=== PATIENT | male | born 1990 | race Caucasian/White ===

== ENCOUNTER 2024-05-28 08:11 | Day surgery (SDC) | payer OTHER, SELFPAY ==
[2024-05-28] VITALS (10 sets, daily range): BP systolic 112–133; BP diastolic 79–99; PULSE 62–80; TEMP 36.1–36.8; O2SAT 97–100; BMI 24.6
[2024-05-28] MEDS: LACTATED RINGER'S SOLUTION 1,000 ML 50 ML IV (09:07)
[2024-05-28] MEDS: CEFAZOLIN SODIUM 2 GM/50 ML D5W PREMIX IV (09:10)
--- NOTE | 2024-05-28 10:25 | P.URON_ITS ---
Urology Surgery Operative Note Operative Note Procedure Date: 05/28/24 Time Out Performed: yes Pre-op Diagnosis: Left ureteral and left renal calculi Post-op Diagnosis: same as pre-op Procedures performed: 1. Cystoscopy. 2. Left ureteroscopy. 3. Thulium laser lithotripsy of left ureteral calculus. 4. Stone fragment basket extraction. 5. The left pyeloscopy. 6. Placement of 4.8 [place] left ureteral stent Anesthesia: General-LMA Primary Surgeon: Ryan Alexis Complications: None Estimated blood loss (mL): 5 Findings: Left ureteral jagged stone at L5-S1. Left renal Mike's plaques; no free renal stones Specimens: Left ureteral calculus Drains: 4.8 [place] variable length left ureteral stent Indications for Procedures: This gentleman has a 6 to 7 mm left ureteral calculus that he is unable to pass. He also has ipsilateral left renal calculi. He now presents for definitive stone manipulation and possible left stent placement. He has signed an informed consent after all risks were explained. Detailed description of Procedure: The patient was brought to the operating room and placed on the operating room table in the supine position. SCDs were placed on the lower extremities and turned on and functioning during the entire case. Timeout was done by all parties in the room. We all agreed upon the patient's identification and the planned procedures for this patient. Genn. anesthesia was then administered. The patient was then repositioned into the modified dorsal lithotomy position. All pressure points were satisfactorily padded. Genitalia were sterilely prepped and draped in usual fashion. I started by passing a 22 [place] Olympus cystoscope per urethra and into the bladder. Anterior urethra was normal. Prostatic urethra was open. Panendoscopy in the bladder revealed no evidence of any tumors stones or lesions. While using fluoroscopy I was unable to appreciate a stone along the course of the left ureter. I then passed a Glidewire through the scope and cannulated the left ureter and passed it up to the left kidney. The scope was removed and I then passed 10/12 [place] ureteral access sheath over the wire up to the L5 position. The stylette and wire were then removed. I then passed a flexible ureteroscope through the access sheath and into the ure ter. Within 1 cm I arrived at the ureteral calculus. This was a jagged stone. It was stuck in the wall of the ureter. I then used 270 ? laser fiber and passed it through the scope and made contact with the stone. The thulium laser was then used at 6 W continuously for fragmentation. A 0 tip nitinol basket was used to extract pieces and these were sent for stone analysis. After the ureter was cleared of all the stones I then did pyeloscopy. I scoped into the upper mid and lower pole calyces. There were no free stones noted. There were several Mike's plaques. The scope was then removed. The wire was passed back up the sheath into the kidney and the sheath was removed. The cystoscope was backloaded over the wire and passed into the bladder and a 4.8 [place] variable length stent was passed over the wire up to the left kidney. The wire was removed and there were good curls in the kidney and in the bladder. The bladder was drained of its contents and the scope was removed. He was then transferred to a [facility] bed and wheeled to PACU in stable condition.
[2024-05-28] MEDS: SOLIFENACIN SUCCINATE 10 MG TABLET PO (10:49)
--- NOTE | 2024-05-28 11:09 | PC.NURSE ---
1105: pt ambulates to bathroom with minimal assistance,pt voids. urine bloody with no clots noted.
== END 2024-05-28 11:35 | disposition home or self-care (01) ==
PROVIDERS: PCP Family Medicine; Visit Provider Urology
PROC: (CPT 918; principal; 2024-05-28 09:25)
DX: N20.2 Calculus of kidney with calculus of ureter (principal); R35.1 Nocturia; K21.9 Gastro-esophageal reflux disease without esophagitis
CPT/HCPCS: 52356; 76000; 82365; 99999; J0690; J1100; J1885; J2250; J2405; J2704; J3010